=== PATIENT | male | born 1965 | race Caucasian/White ===

== ENCOUNTER 2021-06-19 09:27 | Emergency (ER) | payer MEDICAID ==
[~2021-06-19] VITALS: Ht 170.2 cm; Wt 72.6 kg
--- NOTE | 2021-06-19 09:35 | NUR ---
SPEAKING TO PT
[2021-06-19 09:39] VITALS: BP 114/69
--- NOTE | 2021-06-19 09:42 | NUR ---
BIB SELF FOR HEAD ABRASION S/P HITTING A MEDAL GATE LAST NIGHT. P/S 01/29. ADMITS HEADACHE AND DIZZINESSS. AAOX4, SPEAKS CLEARLY, NO SLURRED SPEACH, BREATHING EVEN AND UNLABORED, NO ACTIVE BLEEDING.
[2021-06-19] MEDS ORDERED: TDAP [DIPH/PERTUSSIS/TET] 0.5 ML VIAL IM ONE ×2 (09:44→10:00)
[2021-06-19] MEDS ORDERED: BACITRACIN ZINC OINT PACKET 1 EA PACKET TP ONE ×2 (09:44→10:00)
--- NOTE | 2021-06-19 09:45 | NUR ---
WOUND CARE BEING DONE AT BEDSIDE
[2021-06-19] MEDS ORDERED: LIDOCAINE 1% INJ 50 ML MDV IJ ONE (10:00)
[2021-06-19] MEDS ORDERED: IBUP-1955 PO (10:06)
--- NOTE | 2021-06-19 10:51 | NUR ---
Patient discharged to home in stable condition. Written and verbal after care instructions given. Patient verbalizes understanding of instruction.
== END 2021-06-19 10:50 | disposition home or self-care (01) ==
LOC: ER 09:34
DX: S01.01XA Laceration without foreign body of scalp, initial encounter (principal); J45.909 Unspecified asthma, uncomplicated; W22.8XXA Striking against or struck by other objects, initial encounter; Y93.02 Activity, running; Y92.89 Other specified places as the place of occurrence of the external cause; Y99.8 Other external cause status
CPT/HCPCS: 90715

== ENCOUNTER 2021-06-21 07:53 | Emergency (ER) | payer MEDICAID ==
[~2021-06-21] VITALS: Ht 170.2 cm; Wt 72.6 kg
[~2021-06-21 07:53] MED LIST: IBUP-1955 PO
[2021-06-21 07:58] VITALS: BP 132/78
--- NOTE | 2021-06-21 08:59 | NUR ---
VERBALLY DISCHARGED, SEEN BY DR DOWELL
== END 2021-06-21 09:00 | disposition home or self-care (01) ==
LOC: ER 07:57
DX: S01.01XD Laceration without foreign body of scalp, subsequent encounter (principal); J45.909 Unspecified asthma, uncomplicated; Z79.1 Long term (current) use of non-steroidal anti-inflammatories (NSAID); X58.XXXD Exposure to other specified factors, subsequent encounter

== ENCOUNTER 2021-07-02 20:39 | Emergency (ER) | payer MEDICAID ==
[~2021-07-02] VITALS: Ht 170.2 cm; Wt 77.1 kg
[2021-07-02 20:45] VITALS: BP 130/72
--- NOTE | 2021-07-02 21:28 | NUR ---
Patient discharged to home in stable condition. Written and verbal after care instructions given. Patient verbalizes understanding of instruction. Pt ambulatory with a steady gait
--- NOTE | 2021-07-02 21:28 | NUR ---
Patient discharged to home in stable condition. Written and verbal after care instructions given. Patient verbalizes understanding of instruction. Pt ambulatory with a steady gait
== END 2021-07-02 21:28 | disposition home or self-care (01) ==
LOC: ER 20:42
DX: S01.01XD Laceration without foreign body of scalp, subsequent encounter (principal); J45.909 Unspecified asthma, uncomplicated; X58.XXXD Exposure to other specified factors, subsequent encounter